=== PATIENT | male | born 1940 | race African-American/Black ===

== ENCOUNTER 2018-09-19 05:43 | Inpatient (IN) | payer OTHER ==
[2018-09-12 12:14] VITALS: BMI 23.9
[2018-09-19] MEDS ORDERED: GABAPENTIN 300 MG CAPSULE (FP) PO ONE (06:56)
[2018-09-19] MEDS ORDERED: ROPIVICAINE 0.2%/MORPH PF/KETOROLAC - 51ML DISP.SYRINGE IA ONE ×3 (06:56→10:22)
[2018-09-19] MEDS ORDERED: oxyCODONE HCL 10 MG SUSTAINED ACTING TABLET PO ONE (06:56)
[2018-09-19] MEDS ORDERED: CEFAZOLIN 2 GM in DEXTROSE 5%-WATER - 50 ML IVPB ONE (06:56)
[2018-09-19] MEDS ORDERED: TRANEXAMIC ACID 1000 MG/10 ML VIAL IVPUSH ONE (06:56)
[2018-09-19] MEDS ORDERED: CELECOXIB 200 MG CAPSULE PO ONE (06:56)
[2018-09-19] MEDS ORDERED: PANTOPRAZOLE 40 MG TABLET (FP) PO ONE (06:57)
[2018-09-19] MEDS ORDERED: ePHEDrine SULFATE 50 MG/1 ML AMPULE ONE (07:20)
[2018-09-19] MEDS ORDERED: PROPOFOL 20 ML ONE ×3 (07:20→09:37)
[2018-09-19] MEDS ORDERED: MIDAZOLAM HCL 2 MG/2 ML SINGLE DOSE VIAL ONE ×2 (07:20→07:37)
[2018-09-19] MEDS ORDERED: DEXAMETHASONE SOD PHOSPHATE 4 MG/1 ML VIAL ONE (07:21)
[2018-09-19] MEDS ORDERED: ceFAZolin SODIUM 1 GM VIAL ONE ×2 (07:21→07:25)
[2018-09-19] MEDS ORDERED: PHENYLEPHRINE HCL 10 MG/1 ML SINGLE DOSE VIAL ONE (07:21)
[2018-09-19] MEDS ORDERED: SODIUM CHLORIDE 0.9% P/F 10 ML VIAL IJ ONE (07:21)
[2018-09-19] MEDS ORDERED: ONDANSETRON 4 MG/2 ML VIAL ONE (07:21)
[2018-09-19] MEDS ORDERED: VANCOMYCIN 1,000 MG VIAL (RESTRICTED TO ID ONLY) ONE (07:25)
[2018-09-19] MEDS ORDERED: LIDOCAINE HCL/PF 2% SDV 5ML VIAL ONE (07:26)
[2018-09-19] MEDS ORDERED: SUCCINYLCHOLINE CHLORIDE 200 MG/10 ML VIAL ONE (07:32)
--- NOTE | 2018-09-19 07:39 | HP ---
Admitting History and Physical - Admission Chief Complaint: left hip osteoarthritis x years History of Present Illness: 78 year old male presents in regard to his left hip. Longstanding history of left hip osteoarthritis. Patient complains of pain, limited ROM, difficulty ambulating and difficulty completing ADLs. Patient has failed conservative treatment measures including PO medications, injections, exercise programs and activity modification. At this point, patient wishes to proceed with surgical intervention, a left total hip arthroplasty - MAKOplasty. History Source: Patient - Past Medical History Cardiovascular: Yes: CAD, HTN, Hyperlipdemia Psych: Yes: Anxiety - Past Surgical History Additional Past Surgical History: See written history & physical. - Smoking History Smoking history: Never smoked Have you smoked in the past 12 months: No - Alcohol/Substance Use Hx Alcohol Use: No Home Medications - Allergies Allergies/Adverse Reactions: Allergies Allergy/AdvReac Type Severity Reaction Status Date / Time No Known Allergies Allergy Verified 09/09/18 11:36 - Home Medications Home Medications: Ambulatory Orders Aspirin [ASA -] 81 mg PO DAILY 09/09/18 Atorvastatin Ca [Lipitor] 40 mg PO DAILY 09/09/18 Diazepam [Valium] 5 mg PO TID PRN MDD 3 09/09/18 Ferrous Sulfate 325 mg PO BID 09/09/18 Metoprolol Succinate 25 mg PO DAILY 09/09/18 Omeprazole 20 mg PO BID 09/09/18 Cholecalciferol (Vitamin D3) [Vitamin D3] 1,000 unit PO DAILY 09/12/18 Hydrochlorothiazide [Hctz -] 12.5 mg PO DAILY 09/12/18 Isosorbide Mononitrate [Isosorbide Mononitrate ER] 30 mg PO DAILY 09/12/18 Magnesium Oxide [Magnesium] 400 mg PO DAILY 09/12/18 Ranitidine HCl 150 mg PO BID 09/12/18 Review of Systems - Review of Systems Musculoskeletal: reports: Decreased ROM (left hip), Joint Pain (left hip) Physical Examination Vital Signs: Vital Signs Temperature 97.8 F 09/19/18 06:47 Pulse Rate 58 L 09/19/18 06:47 Respiratory Rate 18 09/19/18 06:47 Blood Pressure 145/84 09/19/18 06:47 O2 Sat by Pulse Oximetry (%) Constitutional: Yes: Well Nourished, No Distress Eyes: Yes: Conjunctiva Clear HENT: Yes: Atraumatic Neck: Yes: Supple Cardiovascular: Yes: Regular Rate and Rhythm Respiratory: Yes: Regular Gastrointestinal: Yes: Soft ...Rectal Exam: Yes: Deferred Musculoskeletal: Yes: Joint Stiffness (left hip) Assessment/Plan 78 year old male presents in regard to their left hip. Longstanding history of left hip osteoarthritis. Patient complains of pain, limited ROM, difficulty ambulating and difficulty completing ADLs. Patient has failed conservative treatment measures including PO medications, injections, exercise programs and activity modification. At this point, patient wishes to proceed with surgical intervention, a left total hip arthroplasty - MAKOplasty. Pros, cons, risks benefits and alternatives of a left total hip arthroplasty, MAKOplasty were discussed with the patient at length. Patient confirms their understanding and consents to proceed with a left total hip arthroplasty, MAKOplasty.
[2018-09-19] MEDS ORDERED: EPINEPHrine/PF 1 MG/1 ML (1:1,000) AMPULE ONE (07:42)
--- NOTE | 2018-09-19 11:33 | OP ---
Operative Note - Note: Operative Date: 09/19/18 Pre-Operative Diagnosis: left hip OA Operation: left JEFF ELMER Post-Operative Diagnosis: Same as Pre-op Surgeon: Jose Antonio Jimenez Speeder Tender: Belkis Sloan Anesthesia: Spinal Estimated Blood Loss (mls): 200
[2018-09-19] MEDS ORDERED: diazePAM 5 MG TABLET PO PRN (11:41)
[2018-09-19] MEDS ORDERED: ACETAMINOPHEN 1000 MG/100 ML VIAL (NON FORMULARY) IVPB ONE (11:42)
[2018-09-19] MEDS ORDERED: MAG HYDROX/AL HYDROX/SIMETH 30 ML UNIT-DOSE CUP PO PRN (11:42)
[2018-09-19] MEDS ORDERED: MAGNESIUM HYDROX 2400MG/30ML ORAL SUSPENSION 30 ML CUP PO PRN (11:42)
[2018-09-19] MEDS ORDERED: KETOROLAC TROMETHAMINE 30 MG/1 ML VIAL IVPUSH SCH (11:45)
[2018-09-19] MEDS ORDERED: LACTATED RINGERS SOLUTION 1,000 ML IV SCH (11:45)
[2018-09-19] MEDS ORDERED: traMADol HCL 50 MG TABLET PO SCH (11:45)
[2018-09-19] MEDS ORDERED: oxyCODONE HCL 5 MG TABLET PO PRN ×2 (12:09)
[2018-09-19] MEDS: CEFAZOLIN 2 GM/D5W 2 GM/50 ML ML IVPB SCH (17:25)
[2018-09-19] MEDS: ONDANSETRON 4 MG/2 ML VIAL IVPUSH PRN ×2 (17:25→23:57)
[2018-09-19] MEDS: ACETAMINOPHEN 325 MG TABLET (FP) PO SCH ×2 (18:40→23:57)
[2018-09-19] MEDS: traMADol HCL 50 MG TABLET PO SCH ×2 (19:18→23:58)
[2018-09-19] MEDS: KETOROLAC TROMETHAMINE 15 MG/ML VIAL IVPUSH SCH ×2 (19:19→23:58)
--- NOTE | 2018-09-19 19:36 | SPEC ---
DATE OF OPERATION: 09/19/2018 PREOPERATIVE DIAGNOSIS: Left hip osteoarthritis. POSTOPERATIVE DIAGNOSIS: Left hip osteoarthritis. PROCEDURE: Left total hip replacement with MAKOplasty robotic navigation. ATTENDING: Joes Antonio Jimenez MD DESIGN ENGINEER MARINE EQUIPMENT: DYAN Estrada ANESTHESIA: Spinal plus sedation. ESTIMATED BLOOD LOSS: 200 mL. COMPLICATIONS: None. DISPOSITION: Patient was transferred to the PACU in stable condition. IMPLANTS USED: Ata Accolade II size 6 femoral component, Trident II 52-mm acetabular component with 20- and 25-mm acetabular screws, MDM bipolar head ball and liner. INDICATIONS: This is a 78-year-old male who presented to the office complaining of severe left hip pain. He was seen and examined by Dr. Jimenez and diagnosed with severe left hip osteoarthritis. The patient was treated initially with conservative management, but continued to have severe pain and ambulatory dysfunction. He was, therefore, indicated for a left total hip replacement. The risks, benefits, and alternatives to the procedure were explained to the patient in great detail, and he elected to proceed with the surgery. On the day of surgery, the patient was taken to the operating room and placed on the OR table. Spinal anesthesia was administered by the anesthesiologist. The patient was then positioned in the lateral decubitus position on the table and all bony prominences were padded. An axillary roll was placed. The operative hip was then prepped and draped in the usual sterile fashion and intravenous antibiotics were given for infection prophylaxis. A surgical time-out was then performed with the team, and the patients identity, procedure, side, availability of implants, and the administration of antibiotics were confirmed. An approximately 15-cm longitudinal incision was made through the skin centered on the greater trochanter of the hip. This dissection was carried down through the subcutaneous tissues to the deep fascia. This fascia was then incised and a Cobra was placed around the inferior femoral neck. Electrocautery was used to reflect the anterior 40% of the gluteus medius and minimus starting at the musculotendinous junction and leaving a cuff for closure. This was reflected to reveal the capsule of the hip joint. An anterior capsulectomy was performed and the femoral head and neck were visualized. Grade 4 changes were noted diffusely throughout the joint. At this point, three small stab incisions were made superior to the main incision along the iliac crest. Three self-drilling Steinmann pins were then placed and the Seamus pelvic array was attached. Reference points on the limb were then entered into the robotic device and the limb length deficiency, offset, and femoral neck resection level were then calculated by the software. The hip was then dislocated with traction and external rotation. An oscillating saw was used to make the femoral neck cut at the level previously templated, and the femoral head was removed. Attention was then turned to the acetabulum. Retractors were then placed around the acetabulum and the labrum was removed. An acetabular checkpoint pin and the [employer] software were used to register the contours of the acetabulum. The acetabulum was then reamed in a single stage to the preoperatively templated size using the [employer] robotic arm. The appropriately sized cup was then impacted and had solid fixation as well as the preset inclination and version of 40 and 20 degrees, respectively. A polyethylene liner was then placed in the cup. Attention was then turned back to the femur, which was externally rotated for improved visualization. A femoral neck elevator was used to present the femoral neck cut, a box osteotome was used to enter the femoral canal, and a canal finder was used to go down the femoral shaft. The Seamus broaches were used sequentially until the optimal scratch fit was achieved. This correlated with the preoperatively templated size. From here, several different offset head and neck configurations were tested until excellent stability and length were obtained. These measurements were quantified using the [employer] software. All trial components were then removed, the femur was copiously irrigated, and the final components were placed. Leg length and stability were checked again and found to be excellent. Irrigation was performed again. Wound closure was started by repairing the abductor muscles with a no. 2 FiberWire stitch in a Krackow configuration passed through bone tunnels in the greater trochanter and tied over a bony bridge. This repair was then reinforced with a 0 V-Loc 180 barbed suture. Next, no. 1 Polysorb and 0 V-Loc 180 were used to close the fascia. The deep subcutaneous tissue was closed with no. 1 Polysorb sutures, and 2-0 Polysorb was used for the superficial subcutaneous tissue. The skin was closed using both 3-0 V-Loc 90 suture in a running subcuticular fashion and SwiftSet skin adhesive. The Seamus array and pins were removed from the iliac crest and the stab incision sites were irrigated and closed with 4-0 Polysorb sutures and SwiftSet skin adhesive. Once this was completed, a sterile dressing was applied. The patient was then awakened and taken to the PACU in stable condition. ADDENDUM: After final implants were placed, a 3-minute dilute Betadine lavage was performed. Following this, the wound was thoroughly irrigated with normal saline via pulsatile lavage and wound closure was begun. Sergio [id number]
[2018-09-19] MEDS ORDERED: DEXAMETHASONE SOD PHOSPHATE 10 MG/1 ML VIAL IVPB ONE (20:00)
[2018-09-19] MEDS: SENNOSIDES/DOCUSATE COMBO (SENNA PLUS) TABLET (UD) PO SCH (21:25)
[2018-09-19] MEDS: CELECOXIB 200 MG CAPSULE PO SCH (21:25)
[2018-09-19] MEDS: FERROUS SO4 325 MG TABLET (FP) PO SCH (21:25)
[2018-09-19] MEDS: ASCORBIC ACID 500 MG TABLET (FP) PO SCH (21:25)
[2018-09-19] MEDS: GABAPENTIN 300 MG CAPSULE (FP) PO SCH (21:25)
[2018-09-19] MEDS ORDERED: PATIENT'S OWN MEDICATION (NON-FORMULARY) (Ranitidine Hcl [Ranitidine Hcl] 150 MG) PO SCH (22:00)
[2018-09-20] MEDS: CEFAZOLIN 2 GM/D5W 2 GM/50 ML ML IVPB SCH (02:17)
[2018-09-20] MEDS: traMADol HCL 50 MG TABLET PO SCH ×3 (06:17→18:37)
[2018-09-20] MEDS: ACETAMINOPHEN 325 MG TABLET (FP) PO SCH ×3 (06:17→18:36)
[2018-09-20] MEDS: KETOROLAC TROMETHAMINE 15 MG/ML VIAL IVPUSH SCH (06:20)
[2018-09-20 08:04] LABS: HEMATOCRIT 32.8 % (35.4-49); HEMOGLOBIN 11.1 GM/dl (11.7-16.9); MCH 28.1 pg (25.7-33.7); MCHC 33.7 g/dl (32.0-35.9); MEAN CELL VOLUME 83.6 fl (80-96); MEAN PLT VOLUME 9.6 fl (7.5-11.1); PLATELET COUNT 137 K/MM3 (134-434); RBC 3.93 M/mm3 (4.00-5.60); RDW 12.3 % (11.9-15.9); WHITE BLOOD COUNT 13.3 K/mm3 (4.0-10.8)
[2018-09-20] MEDS: ASPIRIN 325 MG TABLET PO SCH (08:05)
[2018-09-20 08:06] LABS: CALCIUM 8.8 mg/dl (8.5-10); CREATININE 1.1 mg/dl (0.55-1.3); POTASSIUM 4.3 mmol/L (3.5-5.1)
[2018-09-20] MEDS: MULTIVITAMINS (DAILY MVI) TABLET (FP) PO SCH (09:36)
[2018-09-20] MEDS: HYDROCHLOROTHIAZIDE 12.5 MG CAPSULE (FP) PO SCH (09:36)
[2018-09-20] MEDS: CELECOXIB 200 MG CAPSULE PO SCH ×2 (09:36→21:14)
[2018-09-20] MEDS: GABAPENTIN 300 MG CAPSULE (FP) PO SCH ×2 (09:36→21:14)
[2018-09-20] MEDS: SENNOSIDES/DOCUSATE COMBO (SENNA PLUS) TABLET (UD) PO SCH ×2 (09:37→21:14)
[2018-09-20] MEDS: PANTOPRAZOLE 40 MG TABLET (FP) PO SCH (09:37)
[2018-09-20] MEDS: MAGNESIUM OXIDE 400 MG TABLET (FP) PO SCH (09:38)
[2018-09-20] MEDS: ASCORBIC ACID 500 MG TABLET (FP) PO SCH ×2 (09:38→21:14)
[2018-09-20] MEDS: FERROUS SO4 325 MG TABLET (FP) PO SCH ×2 (10:05→21:14)
[2018-09-20] MEDS: metoPROLOL SUCCINATE 25 MG TAB.SR.24H (FP) PO SCH (10:10)
[2018-09-20] MEDS: ISOSORBIDE MONONITRATE 30 MG TAB.SR.24H (FP) PO SCH (10:16)
[2018-09-20] MEDS ORDERED: ATORVASTATIN CA 40 MG TABLET (FP) PO SCH (22:00)
--- NOTE | 2018-09-20 22:39 | PN ---
Progress Note (short form) - Note Progress Note: Pt seen and examined. Doing well. AVSS Selected Entries 09/20/18 22:00 Temperature 97.6 F Pulse Rate 60 Respiratory 18 Rate Blood Pressure 109/62 O2 Sat by Pulse 96 Oximetry (%) Laboratory Tests 09/20/18 09/20/18 06:57 06:57 WBC 13.3 H Hgb 11.1 L Hct 32.8 L Plt Count 137 Sodium 133 L Potassium 4.3 Chloride 99 Carbon Dioxide 26 Anion Gap 8 BUN 18.0 Creatinine 1.1 Est GFR (CKD-EPI)AfAm 75.18 Est GFR (CKD-EPI)NonAf 64.86 Random Glucose 167 H Calcium 8.8 Gen: NAD LLE: c/d/i, NVID A/P POD#1 s/p L ELMER PT/OOB D/C home in AM
[2018-09-21] MEDS: traMADol HCL 50 MG TABLET PO SCH ×3 (00:06→15:46)
[2018-09-21] MEDS: ACETAMINOPHEN 325 MG TABLET (FP) PO SCH ×3 (00:06→15:46)
[2018-09-21 08:22] LABS: HEMATOCRIT 31.4 % (35.4-49); HEMOGLOBIN 10.3 GM/dl (11.7-16.9); MCH 27.7 pg (25.7-33.7); MEAN PLT VOLUME 9.5 fl (7.5-11.1); PLATELET COUNT 127 K/MM3 (134-434); RBC 3.73 M/mm3 (4.00-5.60); RDW 12.7 % (11.9-15.9); WHITE BLOOD COUNT 13.5 K/mm3 (4.0-10.8)
[2018-09-21] MEDS: CELECOXIB 200 MG CAPSULE PO SCH (09:27)
[2018-09-21] MEDS: ASPIRIN 325 MG TABLET PO SCH (09:27)
[2018-09-21] MEDS: FERROUS SO4 325 MG TABLET (FP) PO SCH (09:27)
[2018-09-21] MEDS: HYDROCHLOROTHIAZIDE 12.5 MG CAPSULE (FP) PO SCH (09:28)
[2018-09-21] MEDS: ISOSORBIDE MONONITRATE 30 MG TAB.SR.24H (FP) PO SCH (09:28)
[2018-09-21] MEDS: GABAPENTIN 300 MG CAPSULE (FP) PO SCH (09:29)
[2018-09-21] MEDS: MAGNESIUM OXIDE 400 MG TABLET (FP) PO SCH (09:29)
[2018-09-21] MEDS: PANTOPRAZOLE 40 MG TABLET (FP) PO SCH (09:29)
[2018-09-21] MEDS: SENNOSIDES/DOCUSATE COMBO (SENNA PLUS) TABLET (UD) PO SCH (09:29)
[2018-09-21] MEDS: metoPROLOL SUCCINATE 25 MG TAB.SR.24H (FP) PO SCH (09:30)
[2018-09-21] MEDS: ASCORBIC ACID 500 MG TABLET (FP) PO SCH (09:31)
--- NOTE | 2018-09-21 09:38 | DS ---
Physical Examination Vital Signs: Vital Signs Temperature 98.0 F 09/21/18 04:32 Pulse Rate 59 L 09/21/18 04:32 Respiratory Rate 18 09/21/18 04:32 Blood Pressure 99/57 L 09/21/18 04:32 O2 Sat by Pulse Oximetry (%) 95 09/21/18 04:32 Labs: CBC, BMP 09/21/18 07:00 09/20/18 06:57 Discharge Summary Reason For Visit: LEFT HIP ARTHRITIS Current Active Problems Osteoarthritis of left hip (Acute) Procedures: Principal: left JEFF ELMER Hospital Course: Admitted for elective surgery. Procedure performed without complications. Pt received postoperative antibiotic prophylaxis and DVT ppx. Ambulated with physical therapy. Stable for discharge home with outpatient followup. Condition: Stable - Instructions Diet, Activity, Other Instructions: Dr Jimenez - Hip Replacement Instructions Keep the Aquacel dressing on until removed by Dr. Jimenez in 10-14 days - it is antibacterial and waterproof and you can shower with it on. Call the office for a follow-up appointment with Dr. Jimenez in 10-14 days. Take one Aspirin 325mg daily for 6 weeks to prevent blood clots in your legs. After 6 weeks resume your preop dose of 81mg daily. Resume taking Omeprazole twice daily to protect against heartburn and ulcers. Take Cephalexin (antibiotic) 3x/day for 10 days to help prevent skin infection. Take Celebrex 200mg daily for 30 days to reduce swelling and inflammation. Take a multivitamin, stool softener and extra Vitamin C supplement daily. For pain: *Mild pain (1-3/10): Take 1 Tramadol tablet every 4 hours as needed. Moderate pain (4-6/10): Take 1 Tramadol tablet and 1 Percocet tablet every 4 hours as needed. Severe pain (7-10/10): Take 1 Tramadol tablet and 2 Percocet tablets every 4 hours as needed. Activity: You can put as much weight on the operative leg as you want. For the first 6 weeks, all you need to do is walk around the house, go up/down stairs, and sit down/get up. After 6 weeks when everything is healed (and bone has grown into the implant) you will be sent for more intensive outpatient physical therapy. Always use a walker or cane for balance and to prevent falls. Expect to see swelling / bruising from the operative site all the way down to your toes. Wear the Compression stocking on the operative side during the day to minimize how much swelling there is in your foot/ankle. Don't wear the stocking at night. You don't have to wear the stocking on the other side. Disposition: VNS/HOME HEALTH CARE - Home Medications Comprehensive Discharge Medication List: Ambulatory Orders Atorvastatin Ca [Lipitor] 40 mg PO DAILY 09/09/18 Diazepam [Valium] 5 mg PO TID PRN MDD 3 09/09/18 Ferrous Sulfate 325 mg PO BID 09/09/18 Metoprolol Succinate 25 mg PO DAILY 09/09/18 Omeprazole 20 mg PO BID 09/09/18 Cholecalciferol (Vitamin D3) [Vitamin D3] 1,000 unit PO DAILY 09/12/18 Hydrochlorothiazide [Hctz -] 12.5 mg PO DAILY 09/12/18 Isosorbide Mononitrate [Isosorbide Mononitrate ER] 30 mg PO DAILY 09/12/18 Magnesium Oxide [Magnesium] 400 mg PO DAILY 09/12/18 Ranitidine HCl 150 mg PO BID 09/12/18 Ascorbic Acid [Vitamin C -] 500 mg PO BID tablet 09/21/18 Aspirin [ASA -] 325 mg PO DAILY@0800 tablet 09/21/18 Celecoxib [CeleBREX -] 200 mg PO DAILY #30 capsule 09/21/18 Cephalexin Monohydrate [Keflex -] 500 mg PO TID #30 capsule 09/21/18 Multivitamins [Multivit ([facility] Formulary)] 1 tab PO DAILY tab 09/21/18 Oxycodone HCl/Acetaminophen [Percocet 5-325 mg Tablet] 1 - 2 tab PO Q4H PRN #60 tablet MDD 10 09/21/18 Sennosides/Docusate Sodium [Pericolace -] 2 tablet PO BID tablet 09/21/18 traMADol HCL [Ultram -] 50 mg PO Q4H PRN #42 tablet MDD 6 09/21/18
[2018-09-21] MEDS: MULTIVITAMINS (DAILY MVI) TABLET (FP) PO SCH (10:00)
[2018-09-21 13:32] VITALS: BP 118/64; PULSE 50; TEMP 97.8
--- NOTE | 2018-09-22 14:17 | PATH ---
Surgical Pathology Report Patient Name: IAN RANGEL Med. Rec. #: [id number] /Age/Gender: 1940 (Age: 78) / M Account: [id number] Location: [facility] MED-SURG Taken: 09/19/2018 Received: 09/19/2018 Reported: 09/22/2018 Physicians: Jose Antonio Jimenez M.D. Specimen(s) Received LEFT FEMORAL HEAD Clinical History Left hip osteoarthritis Final Diagnosis FEMORAL HEAD, LEFT, TOTAL HIP REPLACEMENT: DEGENERATIVE JOINT DISEASE. Electronically Signed Claudia Brown M.D. Gross Description Received in formalin, labeled "left femoral head," is a 4.7 x 4.7 x 4.2 cm. femoral head with a 1.4 cm length portion of femoral neck attached. The margin of resection is smooth. There is a 2.4 cm greatest dimension area of eburnation present. The remaining articular surface is roberts-yellow and diffusely granular and nodular. The underlying trabecular bone is yellow and hard. A farm loan representative section is submitted in one cassette, following decalcification. /09/20/2018 [facility]
== END 2018-09-21 15:48 | disposition home health service (06) | DRG 470 ==
LOC: FM/S 05:43
PROVIDERS: ADMIT Student in an Organized Health Care Education/Training Program; ATTEND Student in an Organized Health Care Education/Training Program
PROC: 8E0Y0CZ Robotic Assisted Procedure of Lower Extremity, Open Approach (ICD-10-PCS; 2018-09-19)
PROC: 0SRB0JZ Replacement of Left Hip Joint with Synthetic Substitute, Open Approach (ICD-10-PCS; principal; 2018-09-19 09:16)
DX: M16.12 Unilateral primary osteoarthritis, left hip (principal); I25.10 Atherosclerotic heart disease of native coronary artery without angina pectoris; I10 Essential (primary) hypertension; E78.5 Hyperlipidemia, unspecified
CPT/HCPCS: 36415; 73502-TC-LT-FY; 80048; 85027; 88305-TC; 88311-TC; 94760; 97116-GP; J0131; J1100